=== PATIENT | female | born 2000 | race Two or more races ===

== ENCOUNTER 2024-01-06 23:51 | Emergency (ER) | payer OTHER ==
[~2024-01-06] VITALS: Ht 152.4 cm; Wt 84.4 kg
[2024-01-07] MEDS ORDERED: DEXAMETHASONE SODIUM PHOSPHATE 4 MG/ML VIAL IM STA (03:19)
== END 2024-01-07 03:30 | disposition home or self-care (01) ==
LOC: ER 23:51
DX: L30.8 Other specified dermatitis (principal); L23.7 Allergic contact dermatitis due to plants, except food